=== PATIENT | male | born 1935 | race Caucasian/White ===

== ENCOUNTER 2022-06-16 07:20 | Day surgery (SDC) | payer MEDICARE, OTHER ==
[~2022-06-16 07:20] MED LIST: ALLO300 PO; ASPI81CH PO; LISI20 PO; METO25ER PO; ZOCOR20 MG PO
[2022-06-16] MEDS ORDERED: Amiodarone HCl200 MG (08:09)
[2022-06-16] MEDS ORDERED: ELIQUIS5 M2 (08:10)
--- NOTE | 2022-06-16 09:11 | NUR ---
PT PREPPED FOR CARDIOVERSION, 20G IV R HAND, PT IN AF NOW, DR NGUYEN PRESENT WTIH DR MÁRQUEZ, CARDIVERTED SUCCESSFULLY 200J X 1, SINUS ANDREAS NOW, 12 LEAD DONE PER ORDER, PT DRESSED, IV DC'D INTACT, PT DC'D BY WC WITH SON DRIVING PT HOME.
== END 2022-06-16 22:47 | disposition home or self-care (01) ==
LOC: MHTC 07:20
DX: I48.91 Unspecified atrial fibrillation (principal); I25.10 Atherosclerotic heart disease of native coronary artery without angina pectoris; I10 Essential (primary) hypertension; E78.5 Hyperlipidemia, unspecified; I48.92 Unspecified atrial flutter
CPT/HCPCS: 92960; 93005; 93010; J7120

== ENCOUNTER 2022-07-16 06:42 | Emergency (ER) | payer MEDICARE, OTHER ==
[~2022-07-16] VITALS: Ht 182.9 cm; Wt 113.4 kg
[~2022-07-16 06:42] MED LIST changes: +Amiodarone HCl200 MG; +ELIQUIS5 M2
[2022-07-16 08:00] LABS: Source, Urine Clean Catch
[2022-07-16 08:17] LABS: Bilirubin, Urine Neg (Neg); Blood, Urine 5+ (Neg); Glucose Qualitative, Urine Neg (Neg); Ketones, Urine Neg (Neg); Leukocyte Esterase, Urine 1+ (Neg); Nitrite, Urine Pos (Neg); Protein, Urine 3+ (Neg); Specific Gravity, Urine 1.025 (1.003-1.022); Urobilinogen, Urine 1+ (Normal)
[2022-07-16 08:19] LABS: Appearance, Urine Bloody (Clear); Color, Urine Red (P-Yellow)
[2022-07-16 08:26] LABS: Red Blood Cells, Urine TNTC /hpf (0-2); Squamous Epithelial Cells Few /hpf (Few); White Blood Cells, Urine 0-2 /hpf (0-5)
[2022-07-16 08:27] LABS: Bacteria Few /hpf
[2022-07-16 09:23] LABS: BASOPHILS ABSOLUTE AUTO 0.02 K/mm3 (0.00-0.23); BASOPHILS PERCENT AUTO 0 % (0-2); EOSINOPHILS ABSOLUTE AUTO 0.02 K/mm3 (0.00-0.68); EOSINOPHILS PERCENT AUTO 0 % (0-6); Hematocrit 40.6 % (37.0-53.0); Hemoglobin 13.9 g/dL (13.5-17.5); IMMATURE GRAN ABSOLUTE AUTO 0.05 K/mm3 (0.00-0.10); IMMATURE GRAN PERCENT AUTO 1 % (0-1); LYMPHOCYTES PERCENT AUTO 37 % (21-46); MONOCYTES PERCENT AUTO 30 % (4-13); Mean Corpuscular HGB 36.4 pg (26.0-34.0); Mean Corpuscular HGB Conc 34.2 g/dL (31.5-36.5); Mean Corpuscular Volume 106 fL (80-100); Mean Platelet Volume 11.3 fL (9.1-12.4); NEUTROPHILS ABSOLUTE AUTO 1.82 K/mm3 (1.96-9.15); NEUTROPHILS PERCENT AUTO 32 % (41-73); Platelet Count 80 K/mm3 (150-400); RDW Coefficient Variation 12.6 % (11.7-14.2); RDW Standard Deviation 49.3 fL (35.1-46.3); Red Blood Cell Count 3.82 M/mm3 (4.30-5.90); White Blood Cell Count 5.71 K/mm3 (4.00-11.30)
[2022-07-16 09:38] LABS: Calcium, Blood 8.8 mg/dL (8.5-10.1); Creatinine, Blood 1.07 mg/dL (0.60-1.20); Potassium, Blood 4.1 mmol/L (3.5-5.5)
[2022-07-16] MEDS ORDERED: CEPH500 PO (10:04)
== END 2022-07-16 10:24 | disposition home or self-care (01) ==
LOC: ER 06:42
PROVIDERS: Emergency Medicine
DX: N39.0 Urinary tract infection, site not specified (principal); D69.6 Thrombocytopenia, unspecified; I10 Essential (primary) hypertension; I25.10 Atherosclerotic heart disease of native coronary artery without angina pectoris; Z95.1 Presence of aortocoronary bypass graft; Z96.641 Presence of right artificial hip joint; Z87.891 Personal history of nicotine dependence; Z79.899 Other long term (current) drug therapy; Z79.01 Long term (current) use of anticoagulants
CPT/HCPCS: 36415; 76770; 80048; 81001; 85025; 87086; 99284-25

== ENCOUNTER → 2023-01-08 | Outpatient (CLI) | payer MEDICARE, OTHER ==
[~2023-01-08] MED LIST changes: +CEPH500 PO
[2023-01-08 10:52] LABS: Source, Urine Clean Catch
[2023-01-08 12:15] LABS: BASOPHILS ABSOLUTE AUTO 0.03 K/mm3 (0.00-0.23); BASOPHILS PERCENT AUTO 0 % (0-2); EOSINOPHILS ABSOLUTE AUTO 0.02 K/mm3 (0.00-0.68); EOSINOPHILS PERCENT AUTO 0 % (0-6); Hematocrit 42.8 % (37.0-53.0); Hemoglobin 14.7 g/dL (13.5-17.5); IMMATURE GRAN ABSOLUTE AUTO 0.05 K/mm3 (0.00-0.10); IMMATURE GRAN PERCENT AUTO 1 % (0-1); LYMPHOCYTES ABSOLUTE AUTO 2.85 K/mm3 (0.84-5.20); LYMPHOCYTES PERCENT AUTO 35 % (21-46); MONOCYTES ABSOLUTE AUTO 1.96 K/mm3 (0.16-1.47); MONOCYTES PERCENT AUTO 24 % (4-13); Mean Corpuscular HGB 36.6 pg (26.0-34.0); Mean Corpuscular HGB Conc 34.3 g/dL (31.5-36.5); Mean Corpuscular Volume 107 fL (80-100); Mean Platelet Volume 11.7 fL (9.1-12.4); NEUTROPHILS ABSOLUTE AUTO 3.16 K/mm3 (1.96-9.15); NEUTROPHILS PERCENT AUTO 39 % (41-73); Platelet Count 106 K/mm3 (150-400); RDW Coefficient Variation 12.2 % (11.7-14.2); RDW Standard Deviation 48.2 fL (35.1-46.3); Red Blood Cell Count 4.02 M/mm3 (4.30-5.90); White Blood Cell Count 8.07 K/mm3 (4.00-11.30)
[2023-01-08 12:42] LABS: Albumin, Blood 3.7 g/dL (3.4-5.0); Bilirubin, Total 0.5 mg/dL (0.1-1.0); Bun/Creatinine Ratio 16.7 (12.0-20.0); Calcium, Blood 9.5 mg/dL (8.5-10.1); Creatinine, Blood 0.96 mg/dL (0.60-1.20); Globulin, Blood 3.6 g/dL (2.2-4.0); Potassium, Blood 4.3 mmol/L (3.5-5.5); Total Protein, Blood 7.3 g/dL (6.4-8.2)
[2023-01-08 14:11] LABS: Bacteria Rare /hpf; Red Blood Cells, Urine TNTC /hpf (0-2); Squamous Epithelial Cells Not Seen /hpf (Few); White Blood Cells, Urine 0-2 /hpf (0-5)
== END ==
LOC: LAB SHORT 10:49 → LAB 10:49
PROVIDERS: Family Medicine
DX: R31.0 Gross hematuria (principal)
CPT/HCPCS: 80053; 81015; 85025; 87086; 88108

== ENCOUNTER 2023-12-16 07:25 | Inpatient (IN) | payer MEDICARE, OTHER ==
[~2023-12-16] VITALS: Ht 188 cm; Wt 110.1 kg
[~2023-12-16 07:25] MED LIST changes: +ATOR10 PO; -ZOCOR20 MG PO
[2023-12-16 08:30] LABS: Hematocrit 38.7 % (37.0-53.0); Hemoglobin 13.2 g/dL (13.5-17.5); Mean Corpuscular HGB 37.5 pg (26.0-34.0); Mean Corpuscular HGB Conc 34.1 g/dL (31.5-36.5); Mean Corpuscular Volume 110 fL (80-100); Platelet Count 63 K/mm3 (150-400); RDW Coefficient Variation 13.4 % (11.7-14.2); RDW Standard Deviation 54.2 fL (35.1-46.3); Red Blood Cell Count 3.52 M/mm3 (4.30-5.90); White Blood Cell Count 12.55 K/mm3 (4.00-11.30)
[2023-12-16 08:43] LABS: Albumin, Blood 3.7 g/dL (3.4-5.0); Bilirubin, Total 1.4 mg/dL (0.1-1.0); Bun/Creatinine Ratio 20.9 (12.0-20.0); Calcium, Blood 9.1 mg/dL (8.5-10.1); Creatinine, Blood 0.77 mg/dL (0.60-1.20); Globulin, Blood 3.6 g/dL (2.2-4.0); Total Protein, Blood 7.3 g/dL (6.4-8.2)
[2023-12-16 08:53] LABS: BAND PERCENT MAN 2 % (0-8); BASOPHILS PERCENT MAN 0 % (0-2); EOSINOPHILS PERCENT MAN 0 % (0-6); LYMPHOCYTES PERCENT MAN 16 % (21-46); MONOCYTES ABSOLUTE MAN 3.13 K/mm3 (0.16-1.47); MONOCYTES PERCENT MAN 25 % (4-13); SEG NEUTROPHILS PERCENT MAN 57 % (41-73); TOTAL CELLS COUNTED 100
[2023-12-16] MEDS ORDERED: CefTRIAXone Sodium 1,000 MG in NS 100 ML IV ONE (09:15)
[2023-12-16] MEDS ORDERED: Azithromycin 500 MG in NS 250 ML IV ONE ×2 (09:15→11:00)
[2023-12-16] MEDS ORDERED: NS 1,000 ML IV SCH (09:50)
[2023-12-16] MEDS ORDERED: Ipratropium/Albuterol SulF 2.5-0.5MG/3 ML Amp INH SCH (11:05)
[2023-12-16] MEDS ORDERED: Albuterol 2.5 MG/3 ML VIAL INH PRN (11:05)
[2023-12-16] MEDS ORDERED: Acetaminophen 325 MG TABLET PO PRN (11:05)
[2023-12-16 12:50] VITALS: BP 128/77
[2023-12-16] MEDS ORDERED: B-121000 MC7 PO (13:04)
[2023-12-16] MEDS ORDERED: FISH OIL 1,0001 EA10 PO (13:04)
[2023-12-16] MEDS ORDERED: VITAMIN D310 MC4 PO (13:04)
[2023-12-16] MEDS ORDERED: CALCIUM MAGNES1 EACH PO (13:05)
[2023-12-16] MEDS ORDERED: MULVITA PO (13:05)
[2023-12-16] MEDS ORDERED: Digoxin 0.5 MG in Dextrose 5% 50 ML IV ONE (13:15)
[2023-12-16] MEDS ORDERED: NS 250 ML IV PRN (13:35)
[2023-12-16] MEDS ORDERED: Omeprazole 20 MG CapCR PO SCH (14:00)
--- NOTE | 2023-12-16 15:48 | NUR ---
1545- THIS RN CALLED DR. TA AND ASKED IF SHE WOULD LIKE PT ON TELEMETRY DUE TO HIS RAPID A-FIB. MD SAID SHE THOUGHT SHE PLACED AN ORDER FOR PCU STATUS. RN INFORMED HER PCU ORDER HAD NOT BEEN PLACED. RN INFORMED HER THAT PT'S HR = 120 TWO HOURS AFTER DIGOXIN ADMINISTRATION. SAID PUT HIM ON TELE AND I'LL CALL BACK LATER TO CHECK ON HIM.
[2023-12-16 16:05] VITALS: BP 133/75
[2023-12-16] MEDS ORDERED: Metoprolol Tartrate 1 MG/ML 5 ML VIAL IV PRN (16:25)
--- NOTE | 2023-12-16 17:17 | NUR ---
1240- PT TO MEDICAL FLOOR AT 1240 AFTER RECEIVING REPORT FROM SILVANA TOVAR NURSE.
--- NOTE | 2023-12-16 17:19 | NUR ---
VERBAL FROM [facility]ELY- THIS RN ASKED MD IF SHE WOULD LIKE HIM TO GO TO PCU AND SHE SAID WE WILL KEEP HIM ON THE MEDICAL FLOOR FOR NOW AND SHE WILL CHECK IN ON HIM LATER. RN TO CORRECT ORDER TO MEDICAL FLOOR.
--- NOTE | 2023-12-16 17:43 | NUR ---
1740- 5MG METOPROLOL IV PUSH DID NOT CHANGE PT'S HR. PT IS STILL IN THE 120'S. THIS RN CALLED TELEMETRY AND VERIFIED NO CHANGE AFTER SUBSTANCE ABUSE SPECIALIST.
--- NOTE | 2023-12-16 17:59 | NUR ---
TELEPHONE CALL TO THE [facility]-[id number] THIS RN INFORMED MD THAT DIGOXIN PUSH THAT IS ORDERED CANNOT BE GIVEN ON MEDICAL FLOOR AND PT NEEDS TO BE TRANSFERRED TO PCU. MD ALSO INFORMED ABOUT 5MG IV PUSH METOPROLOL GIVEN THAT DID NOT CHANGE HR. MD SAID TO TRANSFER TO PCU AND PLACE ORDER PLEASE.
[2023-12-16 19:13] VITALS: BP 112/72
[2023-12-16 19:41] VITALS: BP 131/79
[2023-12-16 20:00] VITALS: BP 124/75
[2023-12-16] MEDS ORDERED: Digoxin 0.25 MG/ML 2ML Amp IV SCH (20:00)
--- NOTE | 2023-12-16 20:39 | NUR ---
1930- PT ARRIVES TO PCU4 IN NO DISTRESS. BEDSIDE REPORT FROM Teetee PARKER RN. PT REMAINS AT A RATE OF 120 EVEN AFTER DIGOXIN WAS GIVEN. PT IS RESTING WITH CPAP ON WITH O2 BLEED IN. PT CONTINUES TO COUGH WITH SOME SCANT BLOOD NOTED IN SPUTUM. PT DENIES CX PAIN OR SOB. CALL LIGHT IN REACH.
[2023-12-16] MEDS ORDERED: GuaiFENesin 600 MG TabCR PO SCH (21:00)
[2023-12-16] MEDS ORDERED: Lactobacil 2-S.Thermo-Bifido 1 1 Cap PO SCH (21:00)
[2023-12-16] MEDS ORDERED: Atorvastatin 10 MG Tab PO SCH (21:00)
[2023-12-16] MEDS ORDERED: Cholecalciferol 400 unit Tab PO SCH (21:00)
[2023-12-16] MEDS ORDERED: Apixaban 5 MG Tab PO SCH (21:00)
[2023-12-16 23:00] VITALS: BP 108/67
[2023-12-17] VITALS (13 sets, daily range): BP systolic 98–134; BP diastolic 53–75
--- NOTE | 2023-12-17 02:45 | NUR ---
0200- PT HEART RATE IS NOW IN 70'S. WILL BE HOLDING 0200 HR DOSE OF DIGOXIN DUE TO BEING OUTSIDE NOTED PARAMETERS. PT SLEEPING COMFORTABLY WITH CPAP.
[2023-12-17 04:39] LABS: Mean Corpuscular HGB 36.7 pg (26.0-34.0); Mean Corpuscular HGB Conc 33.3 g/dL (31.5-36.5); Mean Corpuscular Volume 110 fL (80-100); Mean Platelet Volume 12.3 fL (9.1-12.4); RDW Coefficient Variation 13.1 % (11.7-14.2); RDW Standard Deviation 53.1 fL (35.1-46.3); Red Blood Cell Count 3.27 M/mm3 (4.30-5.90); White Blood Cell Count 7.43 K/mm3 (4.00-11.30)
[2023-12-17 04:48] LABS: Platelet Count 47 K/mm3 (150-400)
[2023-12-17 05:09] LABS: Anion Gap 8 mmol/L (3-11); Blood Urea Nitrogen 13 mg/dL (8-24); Bun/Creatinine Ratio 17.1 (12.0-20.0); CO2, Blood 28 mmol/L (21-32); Calcium, Blood 8.6 mg/dL (8.5-10.1); Chloride, Blood 110 mmol/L (98-108); Creatinine, Blood 0.76 mg/dL (0.60-1.20); Digoxin (Lanoxin) 1.04 ug/mL (0.80-2.00); Glomerular Filtration Rate 87 (60-); Glucose, Blood 107 mg/dL (70-99); Sodium, Blood 142 mmol/L (136-145)
[2023-12-17 05:12] LABS: BAND PERCENT MAN 1 % (0-8); BASOPHILS PERCENT MAN 0 % (0-2); EOSINOPHILS PERCENT MAN 0 % (0-6); LYMPHOCYTES ABSOLUTE MAN 1.85 K/mm3 (0.84-5.20); LYMPHOCYTES PERCENT MAN 25 % (21-46); MONOCYTES ABSOLUTE MAN 2.37 K/mm3 (0.16-1.47); MONOCYTES PERCENT MAN 32 % (4-13); MYELOCYTE ABSOLUTE MAN 0.07 K/mm3 (0.00-0.00); MYELOCYTE PERCENT MAN 1 % (0-0); NEUTROPHILS ABSOLUTE MAN 3.12 K/mm3 (1.96-9.15); SEG NEUTROPHILS PERCENT MAN 41 % (41-73); TOTAL CELLS COUNTED 100
--- NOTE | 2023-12-17 05:41 | NUR ---
SUMMARY- PT TRANSFERED FROM [facility]. PT ARRIVED IN NO DISTRESS. PT ON O2 VIA NC. PT HAS NOT HAD ANY FEVERS OR CHILLS. PT HAS BEEN USING HIS CPAP WITH O2 BLEED IN. PT REQUIRES HIS CHIN STRAP WHILE WEARING CPAP. PT DENIES CX PAIN OR SOB. PT HAS BEEN SLEEPING WELL THROUGHOUT SHIFT. PT TURNS SELF IN BED. PROVIDER CONTACTED REGARDING CRITICAL LAB RESULTS. SECOND DOSE OD DIGOXIN WAS HELD DUE TO NOT MEETING PARAMETERS. PT VOIDING VIA URINAL. CALL LIGHT IN REACH AND BED ALARM ON.
[2023-12-17] MEDS ORDERED: Metoprolol Succinate 50 MG TABCR PO SCH (09:00)
[2023-12-17] MEDS ORDERED: Docosahexanoic Acid/EPA 1,000 MG CAP PO SCH (09:00)
[2023-12-17] MEDS ORDERED: Cyanocobalamin 500 MCG Tab PO SCH (09:00)
[2023-12-17] MEDS ORDERED: Calcium 500 MG/Vit D 200 Units Tab PO SCH (09:00)
[2023-12-17] MEDS ORDERED: Digoxin 0.125 MG Tab PO SCH (09:00)
[2023-12-17] MEDS ORDERED: Enoxaparin 40 MG/0.4 ML SYR SC SCH (09:00)
[2023-12-17] MEDS ORDERED: Lisinopril 20 MG Tab PO SCH (09:00)
[2023-12-17] MEDS ORDERED: Furosemide 10 MG/ML 4ML Vial IV SCH (09:00)
[2023-12-17] MEDS ORDERED: Multivitamins 1 Tab PO SCH (09:00)
[2023-12-17] MEDS ORDERED: CefTRIAXone Sodium 1,000 MG in NS 100 ML IV SCH (10:00)
[2023-12-17] MEDS ORDERED: Azithromycin 500 MG in NS 250 ML IV SCH (11:00)
[2023-12-17] MEDS ORDERED: Diltiazem HCl 5 MG / ML 5ML Vial IV ONE (11:50)
[2023-12-17] MEDS ORDERED: dilTIAZem HCL 125 MG in Dextrose 5% 100 ML IV SCH (16:45)
--- NOTE | 2023-12-17 18:21 | NUR ---
SHIFT SUMMARY PT A/OX 4 AND COOPERATIVE OF CARE. PT ABLE TO EXPRESS NEEDS BUT DOES NOT USE CALL LIGHT FOR ASSISTANCE STATING "I DON'T WNAT TO BE A HASSLE." PT INSTRUCTED TO USE CALL LIGHT AND INFORMED THAT HE IS NOT HASSLING ANYONE. PT HR REMAINED AFLUTTER THROUGHOUT SHIFT, LABILE RATES. PT HR WOULD GO BETWEEN 70'S AND 120'S. LOPRESSOR PUSH GIVEN THIS AM ALONG WITH PO DIGOXIN, SEE EMAR, PT HR RESPONDED FOR SHORT TIME. CARDIZEM GICEN PER ORDER, PT HR REMAINED MOSTLY 120'S. DILT GTT STARTED PER EMAR TOWARDS END OF SHIFT. OTHER VSS THROUGHOUT SHIFT WITH O2 SATS IN THE 90'S. NO REPORT OF CHEST PAIN/PRESSURE THROUGOUT SHIFT. PT UP TO RECLINER DURING SHIFT. PT USING URINAL AT BEDSIDE.
[2023-12-18] VITALS (26 sets, daily range): BP systolic 89–123; BP diastolic 51–92
--- NOTE | 2023-12-18 05:01 | NUR ---
SHIFT SUMMARY PT A&O X4, ABLE TO MAKE NEEDS KNOWN. VSS, AFEBRILE, SPO2 >93% ON 3L NC. PT DENIES CP OR SOB. DILT GTT RUNNING AT 10MG/HR AT BEGINNING OF SHIFT. HR 70'S-80'S, TITRATED PER EMAR. HR BEGAN TO HIT 60'S WHILE PT SLEEPING, DILT GTT PUT ON STANDBY, HR REMAINED 60'S-80'S T/O THE NIGHT. PT WORE HOME CPAP WHILE SLEEPING WITH O2 BLEED IN. USES URINAL AT BEDSIDE. PT IS RESTING COMFORTABLY, CALL LIGHT WITHIN REACH, BREATHING EVEN AND UNLABORED.
--- NOTE | 2023-12-18 08:44 | NUR ---
THIS RN CONTACTED MD ABOUT PT'S SBP BEING UNDER 100. DC'D DILT GTT, DIGOXIN, AND INSTRUCTED THIS RN TO DC LISINOPRIL. MD INSTRUCTED THIS RN TO GIVE NEW PO CARDIZEM ORDER FIRST AND CHECK BACK WITH PT AFTER ABOUT AN HOUR TO GIVE METOPROLOL AND LASIX.
[2023-12-18] MEDS ORDERED: dilTIAZem HCL 120 MG CAP.CD PO SCH (09:00)
[2023-12-18 15:56] LABS: Hematocrit 38.2 % (37.0-53.0); Hemoglobin 12.6 g/dL (13.5-17.5); Mean Corpuscular HGB 36.6 pg (26.0-34.0); Mean Corpuscular Volume 111 fL (80-100); Mean Platelet Volume 12.1 fL (9.1-12.4); Platelet Count 68 K/mm3 (150-400); RDW Coefficient Variation 12.9 % (11.7-14.2); RDW Standard Deviation 52.8 fL (35.1-46.3); Red Blood Cell Count 3.44 M/mm3 (4.30-5.90); White Blood Cell Count 5.51 K/mm3 (4.00-11.30)
--- NOTE | 2023-12-18 17:52 | NUR ---
1551 PT GIVEN LOPRESSOR PUSH FOR RATE CONTROL PER ORDER SINCE PT'S BP WAS FINALLY APPROPIATE FOR LOPRESSOR. PT HR WAS 120'S AT THE TIME OF RECIEVING LOPRESSOR. PT HR IMPROVED AND WAS DOWN TO 70-90'S FROM ROUGHLY 1615 TO 1700. PT'S HR BACK TO 120'S AT ROUGHLY 1700.
--- NOTE | 2023-12-18 17:56 | NUR ---
SHIFT SUMMARY PT A/OX 4 AND COOPERATIVE OF CARE. PT ABLE TO EXPRESS NEES AND CALLED APPROPIATE. PT HR REMAINED AFLUTTER THROUGHOUT SHIFT, MOSTLY IN THE 120'S. DILT GTT STOPPED THIS MORNING AND PT STARTED ONPO DILT. PT'S BP'S SOFT FOR MOST OF SHIFT. PT GIVEN ONE DOSE OF IV LOPRESSOR PER ORDER ONCE BP WAS WITHIN PARAMETERS, SEE PREVIOUS NOTES. OTHER VSS THROUGHOUT SHIFT. NO REPORT OF CHEST PAIN/PRESSURE THROUGHOUT SHIFT. NO REPORT OF SOB/DYSPNEA. PT CONTINUES TO HAVE BLOOD INI HIS SPUTUM, BUT IMPROVING. PT WAS UP TO RECLINER FOR MOST OF SHIFT, TOLERATED WELL. PT CONTINUES TO USE URINAL WHILE IN BED.
[2023-12-19] VITALS (16 sets, daily range): BP systolic 100–148; BP diastolic 51–86
[2023-12-19 05:40] LABS: Hematocrit 35.7 % (37.0-53.0); Mean Corpuscular HGB 36.6 pg (26.0-34.0); Mean Corpuscular HGB Conc 33.6 g/dL (31.5-36.5); Mean Corpuscular Volume 109 fL (80-100); Mean Platelet Volume 11.8 fL (9.1-12.4); Platelet Count 70 K/mm3 (150-400); RDW Coefficient Variation 12.8 % (11.7-14.2); RDW Standard Deviation 51.4 fL (35.1-46.3); Red Blood Cell Count 3.28 M/mm3 (4.30-5.90); White Blood Cell Count 4.99 K/mm3 (4.00-11.30)
--- NOTE | 2023-12-19 05:46 | NUR ---
SHIFT SUMMARY PT IS PLEASANT AND A&O X4, ABLE TO MAKE NEEDS KNOWN, COOPERATIVE WITH CARE. AT BEGINNING OF SHIFT HE STATES THAT HE IS TIRED OF BEING IN THE HOSPITAL AND WANTS TO STOP WORRYING ABOUT HIS HR. PT STATES HE WANTS TO DISCUSS HIS PLAN OF CARE WITH MD IN THE MORNING. VSS, AFEBRILE, SPO2 >93% ON 3L NC WHILE AWAKE. CPAP WITH 5L O2 BLEED IN WHILE ASLEEP. LUNGS CLEAR. HR 70'S-120'S T/O NIGHT. HR WILL INCREASE DEPENDING UPON ACTIVITY/ MOVEMENT BUT WILL QUICKLY RECOVER AND RETURN TO WNL. PT DENIES CP OR SOB. USES URINAL AT BEDSIDE. PT IS RESTING COMFORTABLY, CALL LIGHT WITHIN REACH, BREATHING EVEN AND UNLABORED.
[2023-12-19 06:14] LABS: Anion Gap 10 mmol/L (3-11); Blood Urea Nitrogen 13 mg/dL (8-24); Bun/Creatinine Ratio 18.3 (12.0-20.0); CO2, Blood 28 mmol/L (21-32); Chloride, Blood 107 mmol/L (98-108); Creatinine, Blood 0.71 mg/dL (0.60-1.20); Glomerular Filtration Rate 89 (60-); Glucose, Blood 115 mg/dL (70-99); Phosphorus, Blood 3.8 mg/dL (2.5-4.9); Potassium, Blood 3.6 mmol/L (3.5-5.5); Sodium, Blood 141 mmol/L (136-145)
[2023-12-19] MEDS ORDERED: Diltiazem HCl 180 MG Cap.CD PO SCH (09:00)
[2023-12-19] MEDS ORDERED: Apixaban 5 MG Tab PO SCH (12:00)
--- NOTE | 2023-12-19 17:02 | NUR ---
PT RESTING WELL BED CHAIR FOR THE DAY. HE REMAINS IN A-FLUTTER AT THIS TIME, WITH A RATE OF 67. HE HAD BEGAN THIS SHIFT IN FLUTTER WITH RATE OF 130s, AFTER MORNING MEDICATIONS HIS RATE HAD REMAINED UNCHANGED, DECISION WAS MADE FOR LOPRESSOR PUSH WHICH WAS TOLERATED WELL WITH RATE REDUCTION THAT CONTINUED T/O THE DAY. VSS. HE DENIES CP OR SOB. HE REPORTS THAT HE WAS ABLE TO FEEL THAT FLUTTERING THIS AM IN HIS CHEST, BUT DID NOT HAVE ANY CHEST PAIN WITH IT. HE STATES THAT THE FLUTTERING HAS NOW RESOLVED. HE HAS BEEN UP TO THE SHOWER TODAY WHICH HE ALSO TOLERATED WELL. HE REMAINS ON 1L O2 VIA NASAL CANNULA, WHEN ATTEMPTED TO REMOVE O2 ENTIRELY SPO2 REMAINED AT 86%, HE IS ON 1L O2 WITH SPO2 OF 92%. KESHIA
[2023-12-20 03:25] VITALS: BP 109/56
[2023-12-20 04:18] LABS: Hematocrit 35.5 % (37.0-53.0); Hemoglobin 12.1 g/dL (13.5-17.5); Mean Corpuscular HGB 36.7 pg (26.0-34.0); Mean Corpuscular HGB Conc 34.1 g/dL (31.5-36.5); Mean Corpuscular Volume 108 fL (80-100); Mean Platelet Volume 11.7 fL (9.1-12.4); Platelet Count 85 K/mm3 (150-400); RDW Coefficient Variation 12.7 % (11.7-14.2); RDW Standard Deviation 50.6 fL (35.1-46.3); White Blood Cell Count 4.87 K/mm3 (4.00-11.30)
[2023-12-20 04:41] LABS: Bun/Creatinine Ratio 19.8 (12.0-20.0); Calcium, Blood 9.2 mg/dL (8.5-10.1); Creatinine, Blood 0.66 mg/dL (0.60-1.20); Potassium, Blood 3.5 mmol/L (3.5-5.5)
--- NOTE | 2023-12-20 04:52 | NUR ---
SHIFT SUMMARY PT IS PLEASANT AND A&O X4, ABLE TO MAKE NEEDS KNOWN, COOPERATIVE WITH CARE. VSS, AFEBRILE, SPO2 >93% ON 1-3L NC WHILE AWAKE. CPAP WITH 5L O2 BLEED IN WHILE ASLEEP. LUNGS CLEAR. HR 60'S-120'S T/O NIGHT. HR WILL INCREASE DEPENDING UPON ACTIVITY/ MOVEMENT BUT WILL QUICKLY RECOVER AND RETURN TO WNL. PT DENIES CP OR SOB. USES URINAL AT BEDSIDE. PT IS RESTING COMFORTABLY, CALL LIGHT WITHIN REACH, BREATHING EVEN AND UNLABORED. WILL REPORT TO ONCOMING RN.
[2023-12-20 07:42] VITALS: BP 102/58
[2023-12-20] MEDS ORDERED: Ipratropium/Albuterol SulF 2.5-0.5MG/3 ML Amp INH SCH (11:05)
[2023-12-20 11:08] VITALS: BP 106/68
[2023-12-20] MEDS ORDERED: VISBIOME 112.51 EACH PO (12:01)
[2023-12-20] MEDS ORDERED: GUAI600T33 PO (12:01)
[2023-12-20] MEDS ORDERED: DILT180 PO (12:01)
[2023-12-20] MEDS ORDERED: ALBU90OI INH (12:03)
[2023-12-20] MEDS ORDERED: FURO40 PO (12:04)
[2023-12-20] MEDS ORDERED: CEFU500T30 PO (12:04)
[2023-12-20] MEDS ORDERED: POTCHL20ER PO (12:04)
--- NOTE | 2023-12-20 14:30 | NUR ---
UPDATE DISCHARGE INSTRUCTIONS PROVIDED TO PT. PT EDUCATED ON ANY MEDICATION CHANGES. ALL QUESTIONS ANSWERED. [facility] IN TO DELIVER HOME PORTABLE O2. PT TAKEN OUT VIA WC WITH ALL BELONGINGS
== END 2023-12-20 13:15 | disposition home or self-care (01) | DRG 871 ==
LOC: ER 07:25 → PCU 10:59 → MEDS 10:59 → PCU 19:36
PROVIDERS: Emergency Medicine; ADMIT Internal Medicine
PROC: 3E03329 Introduction of Other Anti-infective into Peripheral Vein, Percutaneous Approach (ICD-10-PCS; principal; 2023-12-16)
PROC: 5A09357 Assistance with Respiratory Ventilation, Less than 24 Consecutive Hours, Continuous Positive Airway Pressure (ICD-10-PCS; 2023-12-17)
DX: A41.9 Sepsis, unspecified organism (principal); I50.31 Acute diastolic (congestive) heart failure; J18.9 Pneumonia, unspecified organism; J96.01 Acute respiratory failure with hypoxia; J44.0 Chronic obstructive pulmonary disease with (acute) lower respiratory infection; I48.20 Chronic atrial fibrillation, unspecified; E66.2 Morbid (severe) obesity with alveolar hypoventilation; Z66 Do not resuscitate; D69.6 Thrombocytopenia, unspecified; I25.10 Atherosclerotic heart disease of native coronary artery without angina pectoris; I11.0 Hypertensive heart disease with heart failure; F10.20 Alcohol dependence, uncomplicated; E78.5 Hyperlipidemia, unspecified; K21.9 Gastro-esophageal reflux disease without esophagitis; I73.9 Peripheral vascular disease, unspecified; M10.9 Gout, unspecified; Z96.641 Presence of right artificial hip joint; Z87.11 Personal history of peptic ulcer disease; Z95.1 Presence of aortocoronary bypass graft; Z79.01 Long term (current) use of anticoagulants; Z79.811 Long term (current) use of aromatase inhibitors; Z79.899 Other long term (current) drug therapy; Z68.30 Body mass index [BMI] 30.0-30.9, adult
CPT/HCPCS: 36415; 71046; 80048; 80053; 80069; 80162; 83605; 83880; 84145; 84443; 84484; 85025; 85027; 86850; 86900; 86901; 87040; 87070; 87205; 93005; 93010; 93306; 94640; 94664; 94761; 94762; 96365; 97110; 97161; 99284-25; A9270; J0456; J0696; J1160; J1940; J7030; J7050

== ENCOUNTER 2024-10-30 13:04 | Emergency (ER) | payer MEDICARE, OTHER ==
[~2024-10-30] VITALS: Ht 188 cm; Wt 113.4 kg
[~2024-10-30 13:04] MED LIST changes: +ALBU90OI INH; +B-121000 MC7 PO; +CALCIUM MAGNES1 EACH PO; +CEFU500T30 PO; +COLCHICINE0.6 MG PO; +DILT180 PO; +FISH OIL 1,0001 EA10 PO; +FURO40 PO; +GUAI600T33 PO; +MULVITA PO; +POTCHL20ER PO; +VISBIOME 112.51 EACH PO; +VITAMIN D310 MC4 PO
[2024-10-30 13:41] LABS: Hematocrit 41.1 % (37.0-53.0); Hemoglobin 14.2 g/dL (13.5-17.5); Mean Corpuscular HGB 37.8 pg (26.0-34.0); Mean Corpuscular HGB Conc 34.5 g/dL (31.5-36.5); Mean Corpuscular Volume 109 fL (80-100); Mean Platelet Volume 11.6 fL (9.1-12.4); Platelet Count 66 K/mm3 (150-400); RDW Coefficient Variation 13.1 % (11.7-14.2); RDW Standard Deviation 52.9 fL (35.1-46.3); Red Blood Cell Count 3.76 M/mm3 (4.30-5.90); White Blood Cell Count 5.06 K/mm3 (4.00-11.30)
[2024-10-30 14:00] LABS: Albumin, Blood 3.7 g/dL (3.4-5.0); Albumin/Globulin Ratio 1.1 (0.8-1.8); Bilirubin, Total 0.8 mg/dL (0.1-1.0); Calcium, Blood 9.3 mg/dL (8.5-10.1); Creatinine, Blood 0.78 mg/dL (0.60-1.20); Globulin, Blood 3.4 g/dL (2.2-4.0); Potassium, Blood 3.8 mmol/L (3.5-5.5); Total Protein, Blood 7.1 g/dL (6.4-8.2)
[2024-10-30 14:07] LABS: BASOPHILS PERCENT MAN 0 % (0-2); EOSINOPHILS PERCENT MAN 0 % (0-6); LYMPHOCYTES % ATYPICAL MANUAL 2 % (0-0); LYMPHOCYTES ABSOLUTE MAN 2.32 K/mm3 (0.84-5.20); LYMPHOCYTES PERCENT MAN 44 % (21-46); MONOCYTES ABSOLUTE MAN 1.41 K/mm3 (0.16-1.47); MONOCYTES PERCENT MAN 28 % (4-13); NEUTROPHILS ABSOLUTE MAN 1.31 K/mm3 (1.96-9.15); SEG NEUTROPHILS PERCENT MAN 26 % (41-73); TOTAL CELLS COUNTED 100
[2024-10-30 14:10] LABS: Influenza A, PCR NEGATIVE (NEGATIVE); Influenza B, PCR NEGATIVE (NEGATIVE); Resp Syncytial Virus, PCR NEGATIVE (NEGATIVE); SARS-Cov-2 (COVID-19) PCR, MMC NEGATIVE (NEGATIVE)
[2024-10-30] MEDS ORDERED: Ipratropium Bromide INH 0.02% 0.5 mg/2.5ML Vial INH SCH (16:05)
[2024-10-30] MEDS ORDERED: Albuterol 2.5 MG/3 ML VIAL INH SCH (16:05)
[2024-10-30 18:37] VITALS: BP 139/89
[2024-10-30] MEDS ORDERED: BENZ100A PO (18:43)
[2024-10-30] MEDS ORDERED: ALBU90OI INH (18:43)
== END 2024-10-30 19:10 | disposition home or self-care (01) ==
LOC: ER 13:04
PROVIDERS: Physician Assistant
DX: R05.9 Cough, unspecified (principal); J02.9 Acute pharyngitis, unspecified; Z79.899 Other long term (current) drug therapy; Z79.2 Long term (current) use of antibiotics; I10 Essential (primary) hypertension; Z95.1 Presence of aortocoronary bypass graft; Z87.891 Personal history of nicotine dependence; Z11.52 Encounter for screening for COVID-19
CPT/HCPCS: 0241U; 71046; 80053; 85025; 93005; 93010; 94644; 94664; 99285-25